=== PATIENT | male | born 1960 | race Two or more races ===

== ENCOUNTER 2019-07-08 13:23 | Emergency (ER) | payer OTHER ==
[~2019-07-08] VITALS: Ht 182.9 cm; Wt 71.2 kg
[~2019-07-08 13:23] MED LIST: CEPH-443 PO; SULF1TAB31 PO
[2019-07-08 13:28] VITALS: BP 114/55; PULSE 104; RESP 20; Ht 182.9 cm; Wt 71.2 kg
== END 2019-07-08 17:20 | disposition home or self-care (01) ==
LOC: FTE 13:23
DX: L08.9 Local infection of the skin and subcutaneous tissue, unspecified (principal); E11.9 Type 2 diabetes mellitus without complications; Z79.84 Long term (current) use of oral hypoglycemic drugs
CPT/HCPCS: 80053; 83605; 85025; Z7502; 99283